=== PATIENT | male | born 1935 | race Caucasian/White ===

== ENCOUNTER 2025-02-22 09:23 | Day surgery (SDC) | payer MEDICARE, OTHER ==
[~2025-02-22] VITALS: Ht 172.7 cm; Wt 71.6 kg
[2025-02-22] MEDS: LIDOCAINE 3.5% 1 ML OPHTH TOPICAL GEL OU ONE (06:00)
[2025-02-22] MEDS: OFLOXACIN 0.3 % (OCUFLOX) OPTH SOL 5ML OS ONE (06:00)
[~2025-02-22 09:23] MED LIST: HYDR12.510 PO; LOSA50TA28 PO; MOME50SP2; PHENYLEPHRINE 10% OPHTH SOL 5ML OS PRN; RELU120T PO; TAMS-18 PO; XTAN40CA PO
[2025-02-22] MEDS: LIDOCAINE 1% SDV 5 ML VIAL As Ordered ONE (11:57)
[2025-02-22] MEDS: BSS IRRIG/VANCO(10MG)/TOBRA(5MG)/EPINEPH(1:1000-0.5CC)500ML BAG-ORONLY As Ordered ONE (11:57)
[2025-02-22] MEDS: CEFUROXIME 1 MG/0.1 ML INTRACAMERAL INJ As Ordered ONE (11:58)
[2025-02-22 12:34] VITALS: BP 169/84; TEMP 97.5; O2SAT 98
[2025-02-22] MEDS: PHENYLEPHRINE 2.5% OPHTH SOL 2ML OS SCH (15:05)
[2025-02-22] MEDS: TROPICAMIDE 1% OPHTH SOLN 15ML OS SCH (15:05)
[2025-02-22] MEDS: CYCLOPENTOLATE 1% OPHTH SOLN 2 ML BTL OS SCH (15:05)
== END 2025-02-22 12:38 | disposition home or self-care (01) ==
LOC: M SDC 09:23
PROVIDERS: ATTEND Ophthalmology
DX: H25.12 Age-related nuclear cataract, left eye (principal); I10 Essential (primary) hypertension; G47.30 Sleep apnea, unspecified; Z79.899 Other long term (current) drug therapy; Z85.46 Personal history of malignant neoplasm of prostate; Z92.21 Personal history of antineoplastic chemotherapy
CPT/HCPCS: 66984; J0697; J3010; V2632